=== PATIENT | male | born 1980 | race Caucasian/White ===

== ENCOUNTER 2016-07-22 10:21 | Emergency (ER) | payer SELFPAY ==
[2016-07-22] MEDS ORDERED: traMADol HCl 50 MG TAB ONE (11:33)
[2016-07-22] MEDS ORDERED: Dexamethasone 4 MG TAB ONE (11:33)
[2016-07-22] MEDS ORDERED: Ibuprofen 800 MG TAB ONE (11:33)
--- NOTE | 2016-07-22 11:35 | RAD ---
RADIOGRAPH RIGHIT HAND THREE VIEWS: History: 35-year-old male status post blunt trauma to right hand with pain at the second MCP region. FINDINGS: There is no fracture, dislocation, or any other significant osseous abnormality. IMPRESSION: Negative. POS: ROMAINE
--- NOTE | 2016-07-22 11:43 | ERRECORD ---
[facility] EMERGENCY RECORD HPI HAND (10:46 ABUS) CHIEF COMPLAINT: Patient presents for evaluation of injury, to the right hand, Patient presents for evaluation of pain, to the right hand, Patient presents for evaluation of swelling, to the right hand. HISTORIAN: History provided by patient, 35 yr old M with no PMH who comes in with right 2nd finger injury while working (he reports "jamming his finger"). No fever, rash, N/V. MECHANISM OF INJURY: Mechanism of injury: Blunt trauma, by direct blow. LOCATION: Symptoms are localized, most severe in the second metacarpal. SEVERITY: Currently symptoms are mild. TIME COURSE: Sudden onset of symptoms, 1, days ago, Symptoms are worsening. ASSOCIATED WITH: No associated symptoms. EXACERBATED BY: Patient's condition exacerbated by movement. RELIEVED BY: Patient's condition relieved by nothing. ROS (10:48 ABUS) CONSTITUTIONAL: Negative constitutional review of systems, Historian denies chills, denies fever. ENT: Negative ears, nose, throat review of systems, Historian denies rhinorrhea, denies sore throat. CARDIOVASCULAR: Negative cardiovascular review of systems, Historian denies chest pain, denies palpitations. RESPIRATORY: Negative respiratory review of systems, Historian denies cough, denies shortness of breath. GI: Negative gastrointestinal review of systems, Historian denies abdominal pain, denies constipation, denies diarrhea, denies nausea, denies vomiting. MUSCULOSKELETAL: Historian denies deformity, reports injury. SKIN: Negative skin review of systems, Historian denies rash, denies skin changes. NEUROLOGIC: Negative neurologic review of systems, Historian denies headache. PAST MEDICAL HISTORY (10:33 JPER) MEDICAL HISTORY: No past medical history, Flu vaccine not up to date, Tetanus immunization up to date, Pneumococcal vaccine not up to date, No past medical history, No past medical history, Flu vaccine not up to date. MALE SURGICAL HISTORY: VERIFIED 07-22-16, venous repair to chin as a child. PSYCHIATRIC HISTORY: Notes: DENIES, Notes: denies, No previous psychiatric history. SOCIAL HISTORY: Social History includes VERIFIED 07-22-16, Patient drinks socially, every week, Patient is a former drug user, abused marijuana, Patient currently uses tobacco, &a-1R&a+25V*p+0X*j0508C*c202B*c15G*c2P*p-0X&a-25V&a+1R Name: Yogi Barros : 1980 M35 MedRec: [id number] AcctNum: [id number] Prepared: Jaimee Jul 22, 2016 11:58 by Interface Page 1 of 4 pMD [facility] EMERGENCY RECORD Smokes cigars, Patient smokes 1 pack per day, Patient drinks socially, every week, Patient is a former drug user, Patient currently uses tobacco. KNOWN ALLERGIES Penicillins (Unconfirmed) CURRENT MEDICATIONS (10:34 JPER) None VITAL SIGNS VITAL SIGNS: BP: 123/74, Pulse: 68, Resp: 16, Temp: 98 (Oral), O2 sat: 100 on Room Air, Time: 07/22/2016 10:29. (10:29 JPER) BP: 125/75, Pulse: 65, Resp: 16, Temp: 98, O2 sat: 100 on RA, Time: 07/22/2016 11:40. (11:40 JPER) PHYSICAL EXAM CONSTITUTIONAL: Vital signs reviewed, Patient afebrile, Pulse normal, Blood pressure normal, Respiratory rate normal, Patient appears non toxic, Patient appears pain free, Patient alert and oriented to person, place and time. (10:48 ABUS) NECK: Neck exam normal, Neck exam included findings of normal range of motion, Trachea midline, no meningeal signs, no cervical adenopathy, no tenderness. (10:48 ABUS) RESPIRATORY CHEST: Respiratory exam included findings of no respiratory distress, Chest exam included findings of chest movement symmetrical, Chest expansion equal. (10:48 ABUS) ABDOMEN MALE: Abdominal exam included findings of abdomen nontender, Bowel sounds normal, no distension, no mass, no pulsatile masses, no peritoneal signs, no rigidity, no guarding, no rebound, Rovsing's sign absent. (10:48 ABUS) BACK: Back exam normal, Back exam included findings of normal inspection, range of motion normal, no tenderness. (10:48 ABUS) UPPER EXTREMITY: Radial pulse normal, capillary refill less than 2 seconds, no cyanosis, no clubbing, no edema, Right MCP joint and finger pain and swelling. Can flex and extend. No open wounds or abrasions. (10:49 ABUS) NEURO: Neuro exam normal, Neuro exam findings include patient oriented to person, place and time, Speech normal, Gait normal. (10:48 ABUS) SKIN: Skin exam normal, Skin exam included findings of skin warm, dry, and normal in color, no rash. (10:48 ABUS) RADIOLOGYINTERPRETATION (11:28 ABUS) UPPER EXTERMITIES: Radiological interpretation of, the right fingers shows, finger negative, no fractures, no dislocations, no foreign bodies, no bony lesions, no degenerative joint disease, no soft tissue swelling. TELEPHONY ENGINEER: Preliminary review of x-rays by, ED Physician, Radiologist. &a-1R&a+25V*p+0X*p9336J*c202B*c15G*c2P*p-0X&a-25V&a+1R Name: Yogi Barros : 1980 M35 MedRec: [id number] AcctNum: [id number] Prepared: chris Jul 22, 2016 11:58 by Interface Page 2 of 4 pMD [facility] EMERGENCY RECORD MEDICATION ADMINISTRATION SUMMARY Drug Name: ibuprofen, Dose Ordered: 800 mg, Route: Oral, Status: Given, Time: 11:39 07/22/2016, Drug Name: traMADol, Dose Ordered: 50 mg, Route: Oral, Status: Given, Time: 11:35 07/22/2016, Drug Name: dexamethasone, Dose Ordered: 8 mg, Route: Oral, Status: Given, Time: 11:35 07/22/2016, Detailed record available in Medication Service section. DOCTOR NOTES (10:50 ABUS) TEXT: 35 yr old M with no PMH who comes in with right 2nd finger injury while working (he reports "jamming his finger"). No fever, rash, N/V. Exam: Right MCP joint and finger pain and swelling. Can flex and extend. No open wounds or abrasions. DDX: Muscle strain, Muscle Spasm, Ligamentous Injury, Contusion, Soft Tissue Injury, Arthritis, Degenerative Joint Disease PLAN: Analgesics, X-ray Update: X-ray negative, likely ligament or tendinitis. Final Dispo: D/C Home with analgesia and regular follow up and return precautions. All results of testing and evaluation were shared with the patient who verbalized understanding and agreement with the plan of care. Level of Complexity / Medical Decision Making: Moderate High. PROBLEM LIST No recorded problems DIAGNOSIS (11:31 ABUS) FINAL: PRIMARY: Finger Injury. PRESCRIPTION (11:33 ABUS) ibuprofen: TABLET : 800 mg : ORAL : Quantity: 1 Unit: tab(s) Route: ORAL Schedule: every 8 hours PRN Dispense: 12 Unit: tab(s) May substitute. Refills: No Refills . NOTES: Must get this filled to get Tramadol filled. No Refills. traMADol: TABLET : 50 mg : ORAL : Quantity: 1 Unit: tab(s) Route: ORAL Schedule: every 6 hours PRN Dispense: 6 Unit: tab(s) May substitute. Refills: No Refills . NOTES: No Refills. DISPOSITION PATIENT: Disposition Type: Discharge, Disposition: *Discharge Home, Condition: Good. (11:31 ABUS) Patient left the department. (11:55 JPER) Brush: &a-1R&a+25V*p+0X*q1302K*c202B*c15G*c2P*p-0X&a-25V&a+1R Name: Yogi Barros : 1980 5 MedRec: [id number] AcctNum: [id number] Prepared: ThuJul 22, 2016 11:58 by Interface Page 3 of 4 pMD [facility] EMERGENCY RECORD ABUS=MD Polo, Grey PERRY=JOHN Dimas, Carmen &a-1R&a+25V*p+0X*g0451E*c202B*c15G*c2P*p-0X&a-25V&a+1R Name: Yogi Barros : 1980 M35 MedRec: [id number] AcctNum: [id number] Prepared: ThuJul 22, 2016 11:58 by Interface Page 4 of 4 pMD MTDD
--- NOTE | 2016-07-22 11:45 | PICIS ---
[facility] EMERGENCY RECORD TRIAGE (10:33 JPER) PATIENT: NAME: Yogi Barros, AGE: 35, GENDER: male, : Sun 1980, TIME OF GREET: ThuJul 22, 2016 10:22, PREFERRED LANGUAGE: Arabic, RACE: WHITE, ETHNICITY: Not or , FALL RISK: NO, ECODE BILLING MAP: [facility], SSN: [id number], Zip Code: [address], KG WEIGHT: 69.40, PHONE: , , , PERSON ID: [id number], PCP: NO PCP. (10:33 JPER) COMPLAINT: RT HAND INJURY. (10:33 JPER) ADMISSION: URGENCY: 4 Non Urgent, ADMISSION SOURCE: Home, TRANSPORT: Walk-in, BED: ED -03. (10:33 JPER) ASSESSMENT: Assessment: RIGHT HAND PAIN; BRUISING ET SWELLING ONSET 0 LAST NIGHT CAUSE UNKNOWN. (10:33 JPER) PAIN: Patient complains of pain described as, burning, on a scale 0-10 patient rates pain as 8, Pain is constant, Aggravating factors:, Pain exacerbated by movement, No relieving factors. (10:33 JPER) SIRS SCORING: Heart Rate 55-109 (0), Temp range 96.8-101.1 (0), respiratory rate 12-24 (0), Mental Status altered: no (0). (10:33 JPER) TRIAGE SCREENING: Patient denies suicidal ideation, Patient denies presence of domestic violence. (10:33 JPER) PROVIDERS: TRIAGE NURSE: Carmen Dimas RN. (10:33 JPER) VITAL SIGNS: BP 123/74, Pulse 68, Resp 16, Temp 98, (Oral), O2 Sat 100, on Room Air, Time 07/22/2016 10:29. (10:29 JPER) PREVIOUS VISIT ALLERGIES: Penicillins. (10:33 JPER) KNOWN ALLERGIES Penicillins (Unconfirmed) CURRENT MEDICATIONS (10:34 JPER) None VITAL SIGNS VITAL SIGNS: BP: 123/74, Pulse: 68, Resp: 16, Temp: 98 (Oral), O2 sat: 100 on Room Air, Time: 07/22/2016 10:29. (10:29 JPER) BP: 125/75, Pulse: 65, Resp: 16, Temp: 98, O2 sat: 100 on RA, Time: 07/22/2016 11:40. (11:40 JPER) NURSING ASSESSMENT: EXTREMITY UPPER (10:57 JPER) CONSTITUTIONAL: Patient arrives ambulatory, Gait steady, History obtained from patient, Patient appears comfortable, Patient cooperative, Patient alert, Oriented to person, place and time, Skin warm, Skin dry, Skin normal in color, Mucous membranes pink, Mucous membranes moist, Patient is well-groomed, Patient complains of right hand pain. PAIN: burning pain, to the right hand, on a scale 0-10 patient rates pain as 8, Pain exacerbated by nothing, Nothing has been tried to alleviate the pain. RIGHT UPPER EXTREMITY: Right upper extremity assessment findings &a-1R&a+25V*p+0X*x5742I*c202B*c15G*c2P*p-0X&a-25V&a+1R Name: Yogi Barros : 1980 M35 MedRec: [id number] AcctNum: [id number] Prepared: Jaimee Jul 22, 2016 12:00 by Interface Page 1 of 6 pMD [facility] EMERGENCY RECORD include capillary refill less than 2 seconds, Skin color normal to hand, Skin temperature to hand warm, Distal sensation intact, Muscle tone normal, Inspection findings include ecchymosis, Inspection findings include swelling, Notes: decreased rom rt pain; pos pulse; pos cap refill. NOTES: Emotional support needed and given. NURSING PROCEDURE: DISCHARGE NOTE (11:40 JPER) DISCHARGE: Patient discharged to home, ambulating without assistance, friend driving, accompanied by friend, Summary of Care printed/ provided, Patient requested and was provided an electronic copy of Discharge Instructions, Transition record given to patient, Discharge instructions given to patient, Prescriptions given and instructions on side effects given, Above person(s) verbalized understanding of discharge instructions and follow-up care, Patient treated and evaluated by physician. BELONGINGS: Belongings remain with patient, Valuables remain with patient. NOTES: Emotional support needed and given. VITAL SIGNS: BP: 125, / 75, Pulse: 65, Resp: 16, Temp: 98, O2 sat: 100, on: RA. ORDER DETAILS Order Name: XR Hand Rt 2 View, Status: Canceled, Time: 10:55 07/22/2016, User: System, - Ordered for: MD Cuellar Anthony, - Entered by: MD Cuellar Anthony - ThuJul 22, 2016 10:46, - Quantity: 1. MEDICATION ADMINISTRATION SUMMARY Drug Name: ibuprofen, Dose Ordered: 800 mg, Route: Oral, Status: Given, Time: 11:39 07/22/2016, Drug Name: traMADol, Dose Ordered: 50 mg, Route: Oral, Status: Given, Time: 11:35 07/22/2016, Drug Name: dexamethasone, Dose Ordered: 8 mg, Route: Oral, Status: Given, Time: 11:35 07/22/2016, Detailed record available in Medication Service section. MEDICATION SERVICE dexamethasone: Order: dexamethasone - Dose: 8 mg : Oral Schedule: Now Ordered by: Grey Cuellar MD Entered by: Grey Cuellar MD ThuJul 22, 2016 11:29 , Acknowledged by: Julieta De La Garza RN ThuJul 22, 2016 11:32 Documented as given by: Julieta De La Garza RN ThuJul 22, 2016 11:35 Patient, Medication, Dose, Route and Time verified prior to administration. &a-1R&a+25V*p+0X*v8270S*c202B*c15G*c2P*p-0X&a-25V&a+1R Name: Yogi Barros : 1980 M35 MedRec: [id number] AcctNum: [id number] Prepared: ThuJul 22, 2016 12:00 by Interface Page 2 of 6 pMD [facility] EMERGENCY RECORD Amount given: 8 mg, Site: Medication administered P.O., Correct patient, time, route, dose and medication confirmed prior to administration, Patient advised of actions and side-effects prior to administration, Allergies confirmed and medications reviewed prior to administration, Patient in position of comfort, Side rails up, Cart in lowest position, Family at bedside. ibuprofen: Order: ibuprofen - Dose: 800 mg : Oral Schedule: Now Ordered by: Grey Cuellar MD Entered by: Grey Cuellar MD ThuJul 22, 2016 11:29 , Acknowledged by: Julieta De La Garza RN ThuJul 22, 2016 11:32 Documented as given by: Julieta De La Garza RN chris Jul 22, 2016 11:39 Patient, Medication, Dose, Route and Time verified prior to administration. Amount given: 800 mg, Site: Medication administered P.O., Correct patient, time, route, dose and medication confirmed prior to administration, Patient advised of actions and side-effects prior to administration, Allergies confirmed and medications reviewed prior to administration, Patient in position of comfort, Side rails up, Cart in lowest position, Family at bedside. traMADol: Order: traMADol (tramadol HCl) - Dose: 50 mg : Oral Schedule: Now Ordered by: Grey Cuellar MD Entered by: Grey Cuellar MD chris Jul 22, 2016 11:30 , Acknowledged by: Julieta De La Garza RN chris Jul 22, 2016 11:32 Documented as given by: Julieta De La Garza RN chris Jul 22, 2016 11:35 Patient, Medication, Dose, Route and Time verified prior to administration. Amount given: 50 mg, Site: Medication administered P.O., Correct patient, time, route, dose and medication confirmed prior to administration, Patient advised of actions and side-effects prior to administration, Allergies confirmed and medications reviewed prior to administration, Patient in position of comfort, Side rails up, Cart in lowest position, Family at bedside. HPI HAND (10:46 ABUS) CHIEF COMPLAINT: Patient presents for evaluation of injury, to the right hand, Patient presents for evaluation of pain, to the right hand, Patient presents for evaluation of swelling, to the right hand. HISTORIAN: History provided by patient, 35 yr old M with no PMH who comes in with right 2nd finger injury while working (he reports "jamming his finger"). No fever, rash, N/V. MECHANISM OF INJURY: Mechanism of injury: Blunt trauma, by direct blow. LOCATION: Symptoms are localized, most severe in the second metacarpal. SEVERITY: Currently symptoms are mild. TIME COURSE: Sudden onset of symptoms, 1, days ago, Symptoms are worsening. &a-1R&a+25V*p+0X*q0785F*c202B*c15G*c2P*p-0X&a-25V&a+1R Name: Yogi Barros : 1980 5 MedRec: [id number] AcctNum: [id number] Prepared: Jaimee Jul 22, 2016 12:00 by Interface Page 3 of 6 pMD [facility] EMERGENCY RECORD ASSOCIATED WITH: No associated symptoms. EXACERBATED BY: Patient's condition exacerbated by movement. RELIEVED BY: Patient's condition relieved by nothing. ROS (10:48 ABUS) CONSTITUTIONAL: Negative constitutional review of systems, Historian denies chills, denies fever. ENT: Negative ears, nose, throat review of systems, Historian denies rhinorrhea, denies sore throat. CARDIOVASCULAR: Negative cardiovascular review of systems, Historian denies chest pain, denies palpitations. RESPIRATORY: Negative respiratory review of systems, Historian denies cough, denies shortness of breath. GI: Negative gastrointestinal review of systems, Historian denies abdominal pain, denies constipation, denies diarrhea, denies nausea, denies vomiting. MUSCULOSKELETAL: Historian denies deformity, reports injury. SKIN: Negative skin review of systems, Historian denies rash, denies skin changes. NEUROLOGIC: Negative neurologic review of systems, Historian denies headache. PAST MEDICAL HISTORY (10:33 JPER) MEDICAL HISTORY: No past medical history, Flu vaccine not up to date, Tetanus immunization up to date, Pneumococcal vaccine not up to date, No past medical history, No past medical history, Flu vaccine not up to date. MALE SURGICAL HISTORY: VERIFIED 07-22-16, venous repair to chin as a child. PSYCHIATRIC HISTORY: Notes: DENIES, Notes: denies, No previous psychiatric history. SOCIAL HISTORY: Social History includes VERIFIED 07-22-16, Patient drinks socially, every week, Patient is a former drug user, abused marijuana, Patient currently uses tobacco, Smokes cigars, Patient smokes 1 pack per day, Patient drinks socially, every week, Patient is a former drug user, Patient currently uses tobacco. PHYSICAL EXAM CONSTITUTIONAL: Vital signs reviewed, Patient afebrile, Pulse normal, Blood pressure normal, Respiratory rate normal, Patient appears non toxic, Patient appears pain free, Patient alert and oriented to person, place and time. (10:48 ABUS) NECK: Neck exam normal, Neck exam included findings of normal range of motion, Trachea midline, no meningeal signs, no cervical adenopathy, no tenderness. (10:48 ABUS) RESPIRATORY CHEST: Respiratory exam included findings of no respiratory distress, Chest exam included findings of chest movement &a-1R&a+25V*p+0X*m2079X*c202B*c15G*c2P*p-0X&a-25V&a+1R Name: Yogi Barros : 1980 M35 MedRec: [id number] AcctNum: [id number] Prepared: ThuJul 22, 2016 12:00 by Interface Page 4 of 6 pMD [facility] EMERGENCY RECORD symmetrical, Chest expansion equal. (10:48 ABUS) ABDOMEN MALE: Abdominal exam included findings of abdomen nontender, Bowel sounds normal, no distension, no mass, no pulsatile masses, no peritoneal signs, no rigidity, no guarding, no rebound, Rovsing's sign absent. (10:48 ABUS) BACK: Back exam normal, Back exam included findings of normal inspection, range of motion normal, no tenderness. (10:48 ABUS) UPPER EXTREMITY: Radial pulse normal, capillary refill less than 2 seconds, no cyanosis, no clubbing, no edema, Right MCP joint and finger pain and swelling. Can flex and extend. No open wounds or abrasions. (10:49 ABUS) NEURO: Neuro exam normal, Neuro exam findings include patient oriented to person, place and time, Speech normal, Gait normal. (10:48 ABUS) SKIN: Skin exam normal, Skin exam included findings of skin warm, dry, and normal in color, no rash. (10:48 ABUS) EVENTS TRANSFER: Triage to Emergency Main ED -03. (ThuJul 22, 2016 10:33 JPER) Removed from Emergency Main ED -03. (11:55 JPER) RADIOLOGYINTERPRETATION (11:28 ABUS) UPPER EXTERMITIES: Radiological interpretation of, the right fingers shows, finger negative, no fractures, no dislocations, no foreign bodies, no bony lesions, no degenerative joint disease, no soft tissue swelling. HAND FLESHER: Preliminary review of x-rays by, ED Physician, Radiologist. DOCTOR NOTES (10:50 ABUS) TEXT: 35 yr old M with no PMH who comes in with right 2nd finger injury while working (he reports "jamming his finger"). No fever, rash, N/V. Exam: Right MCP joint and finger pain and swelling. Can flex and extend. No open wounds or abrasions. DDX: Muscle strain, Muscle Spasm, Ligamentous Injury, Contusion, Soft Tissue Injury, Arthritis, Degenerative Joint Disease PLAN: Analgesics, X-ray Update: X-ray negative, likely ligament or tendinitis. Final Dispo: D/C Home with analgesia and regular follow up and return precautions. All results of testing and evaluation were shared with the patient who verbalized understanding and agreement with the plan of care. Level of Complexity / Medical Decision Making: Moderate High. PROBLEM LIST No recorded problems DIAGNOSIS (11:31 ABUS) FINAL: PRIMARY: Finger Injury. &a-1R&a+25V*p+0X*y3353Y*c202B*c15G*c2P*p-0X&a-25V&a+1R Name: Yogi Barros : 1980 M35 MedRec: [id number] AcctNum: [id number] Prepared: chris Jul 22, 2016 12:00 by Interface Page 5 of 6 pMD [facility] EMERGENCY RECORD DISPOSITION PATIENT: Disposition Type: Discharge, Disposition: *Discharge Home, Condition: Good. (11:31 ABUS) Patient left the department. (11:55 JPER) INSTRUCTION (11:32 ABUS) DISCHARGE: FINGER SPRAIN. FOLLOWUP: [facility], ., Clinic, [address] [place] [address], [facility] , , [facility], /[facility], [address] [place] [address], , Follow up with Primary Care Physician in 2-3 days. SPECIAL: Please keep any upcoming appointments with your primary doctor or call the referral provided to you today to establish a follow up evaluation or ongoing medical care. Please come back if you start to have fever, vomiting, worsening pain, or any symptoms that concern you. PRESCRIPTION (11:33 ABUS) ibuprofen: TABLET : 800 mg : ORAL : Quantity: 1 Unit: tab(s) Route: ORAL Schedule: every 8 hours PRN Dispense: 12 Unit: tab(s) May substitute. Refills: No Refills . NOTES: Must get this filled to get Tramadol filled. No Refills. traMADol: TABLET : 50 mg : ORAL : Quantity: 1 Unit: tab(s) Route: ORAL Schedule: every 6 hours PRN Dispense: 6 Unit: tab(s) May substitute. Refills: No Refills . NOTES: No Refills. IMAGING (11:55 JPER) *DISCHARGE INSTRUCTIONS RECEIPT: Image captured from scanner. *SUPPLY CHARGE SHEET: Image captured from scanner. ADMIN (11:35 AB) DIGITAL SIGNATURE: MD Cuellar Anthony. Brush: ABUS=MD Cuellar Anthony JPER=JOHN Dimas, Carmen &a-1R&a+25V*p+0X*j7686M*c202B*c15G*c2P*p-0X&a-25V&a+1R Name: Yogi Barros : 1980 M35 MedRec: [id number] AcctNum: [id number] Prepared: Jaimee Jul 22, 2016 12:00 by Interface Page 6 of 6 pMD MTDD
== END 2016-07-22 11:40 | disposition home or self-care (01) ==
LOC: MADERS 10:21
DX: S69.91XA Unspecified injury of right wrist, hand and finger(s), initial encounter (principal); F17.210 Nicotine dependence, cigarettes, uncomplicated; X58.XXXA Exposure to other specified factors, initial encounter
CPT/HCPCS: 99283; J8540